=== PATIENT | male | born 1935 | race Caucasian/White ===

== ENCOUNTER 2017-01-03 20:15 | Emergency (ER) | payer MEDICARE ==
[~2017-01-03] VITALS: Ht 180.3 cm; Wt 79.4 kg
[~2017-01-03 20:15] MED LIST: AMLODIPINE BESYL5 MG PO; BP MEDS X 2; CELEBREX PO; KCL PO; LEXAPRO PO; LISINOPRIL-HCTZ1 T15 PO; NO MEDICATIONS
== END 2017-01-04 23:00 | disposition left against medical advice (07) ==
LOC: CED 20:15
DX: Z53.21 Procedure and treatment not carried out due to patient leaving prior to being seen by health care provider (principal)